=== PATIENT | male | born 1940 | race Hispanic/Latino ===

== ENCOUNTER 2018-08-11 12:00 | Inpatient (IN) | payer MEDICARE ==
[~2018-08-11] VITALS: Ht 170.2 cm; Wt 73.1 kg
[2018-08-11] MEDS ORDERED: SODIUM CHLORIDE 0.9% 500ML 500 ML IV STA (12:02)
--- OUTSIDE RECORDS SUMMARY | 2018-08-11 12:02 | XMS REPORT ---
Author [facility] Address Unknown Phone Unavailable Care Team Providers Care Silk Folder Name Role Phone Emeterio OLIVEROS OSWALDO PP Unavailable Payers Payer Name Policy Type Policy Number Effective Date Expiration Date Problems This patient has no known problems. Allergies, Adverse Reactions, Alerts Allergy Name Allergy Type Status Severity Reaction(s) Onset Date Inactive Date Treating Clinician Comments No Known Allergies DA Active U 2017-03-25 00:00:00 Medications This patient has no known medications. Encounters Start Date/Time End Date/Time Encounter Type Admission Type Attending Clinicians Care Facility Care Department Encounter ID 2017-12-07 09:30:00 2017-12-07 09:30:00 Outpatient [facility] [id number] 2017-11-08 10:25:00 2017-11-08 10:25:00 Outpatient [facility] [id number] Results Test Description Test Time Test Comments Text Results Atomic Results Result Comments CT ABDOMEN WO CONTRAST 2017-12-07 10:17:15 CT ABDOMEN WO CONTRASTLOCATION: [id number]: D63.1: ANEMIA IN CHRONIC KIDNEY DISEASECOMPARISON: Chest radiograph 11/08/2017TECHNIQUE: Axial images of the abdomen were obtained without intravenouscontrast. Coronal and sagittal reformatted images were created.One or more of the following dose reduction techniques were used:Automated exposure control, adjustment of the mA and/or kV according topatient size, and/or utilization of iterative reconstruction technique.DISCUSSION:Lower thorax: Median sternotomy changes are partially visualized. Thereis mild bibasilar atelectasis and/or scarring. Aortic annulus andcoronary artery calcifications are present.Hepatobiliary: Unremarkable. No biliary ductal dilatation.Gallbladder: Appears contracted.Spleen: Unremarkable.Pancreas: Unremarkable.Adrenals: Unremarkable.Kidneys/ureters: Perinephric fat stranding can be normal for age.Approximately 4.3 cm fluid density lesion in the lower left kidney islikely a cyst. Additional 0.8 cm fluid density lesion in the lower rightkidney and 0.9 cm fluid density lesion in the upper left kidney are alsolikely cysts. The kidneys and visualized upper ureters are otherwiseunremarkable.Vessels: Aortoiliac calcific atherosclerosis is present.Lymph nodes: No lymphadenopathy.Peritoneum/retroperitoneum: No free fluid. No definite evidence forpneumoperitoneum. Punctate peritoneal calcification along the superiorspleen is nonspecific.Bowel: A small, approximately 1.2 cm duodenal diverticulum is seen alongthe pancreaticoduodenal groove. Otherwise, no definite abnormal bowelwall thickening or evidence of obstruction. The appendix is normal.Colonic diverticulosis is present without definite evidence fordiverticulitis.Bones/soft tissues: There are mild to moderate scattered degenerativechanges in the spine and sacroiliac joints. Mild gynecomastia ispartially visualized.IMPRESSION:1. No acute abnormalities in the abdomen.2. A few bilateral renal cysts, measuring up to 4.3 cm in the lowerleft kidney.3. Colonic diverticulosis without diverticulitis.4. Small duodenal diverticulum. XR CHEST 2V, PA/LAT 2017-11-08 10:56:33 EXAM: Chest x-ray, 2 viewsLOCATION: [id number]: Chest radiograph 04/29/2016INDICATION: F17.210: NICOTINE DEPENDENCE, CIGARETTES, UNCOMPLICATEDDISCUSSION:PA and lateral chest radiographs were submitted for interpretation.Median sternotomy changes are noted.No consolidation, pleural effusion, or pneumothorax is seen. The cardiomediastinal silhouette is within normal limits. No acute osseous abnormalities are identified. Mild aortic calcification is present.There are degenerative changes in the shoulders and spine.IMPRESSION:No acute cardiopulmonary abnormalities.
[2018-08-11] MEDS ORDERED: FAMOTIDINE 20 MG/2 ML VIAL IV ONE (12:15)
[2018-08-11] MEDS ORDERED: ONDANSETRON HCL INJ 2 MG/ML VIAL IV PRN ×2 (12:15→14:00)
[2018-08-11 12:47] LABS: BASOPHILS % 0.2 % (0.0-1.0); HEMOGLOBIN 9.4 g/dL (14.0-18.0); LYMPHOCYTES % 7.9 % (18.0-39.1); MEAN CORPUSCULAR HEMOGLOBIN 29.9 pg (28-32); MEAN CORPUSCULAR HGB CONC 32.4 g/dL (31-35); MEAN CORPUSCULAR VOLUME 92.4 fL (81-99); MONOCYTES # (AUTO) 0.3 (0.2-0.8); MONOCYTES % 2.6 % (4.4-11.3); NEUTROPHILS # (AUTO) 11.4 (2.1-6.9); NEUTROPHILS % 88.1 % (38.7-80.0); PLATELET COUNT 341 x10e3/uL (140-360); RED BLOOD COUNT 3.14 x10e6/uL (4.3-5.7); RED CELL DISTRIBUTION WIDTH 16.1 % (11.7-14.4)
[2018-08-11] MEDS ORDERED: PLAVIX75 MG PO (12:48)
[2018-08-11] MEDS ORDERED: METOPROLOL SUCC25 MG PO (12:48)
[2018-08-11] MEDS ORDERED: ATORVASTATIN CA10 MG PO (12:48)
[2018-08-11] MEDS ORDERED: HYDROCHLOROTH12.5 MG PO (12:48)
[2018-08-11] MEDS ORDERED: LOW DOSE ASPIRI81 MG PO (12:48)
[2018-08-11] MEDS ORDERED: LISINOPRIL40 MG PO (12:48)
[2018-08-11] MEDS ORDERED: PIOGLITAZONE HC30 MG PO (12:48)
[2018-08-11] MEDS ORDERED: TAMSULOSIN HCL0.4 MG PO (12:48)
[2018-08-11] MEDS ORDERED: NITROGLYCERIN0.4 MG SL (12:48)
[2018-08-11] MEDS ORDERED: GLIPIZIDE10 MG PO (12:48)
--- NOTE | 2018-08-11 12:54 | Diagnostic Imaging Report ---
Examination: Single AP view of the chest. COMPARISON: None. INDICATION: Chest pain, look for CHF, enlarged mediastinum IMPRESSION: 1. Lines and Tubes: Tunneled right IJ dialysis catheter, with distal tip projecting in the proximal SVC. 2. Lungs are grossly clear. No consolidation or effusion. 3. Cardiomediastinal silhouette is normal. Pulmonary vasculature is normal. CABG changes. Mediastinum is grossly unremarkable in this single AP view 4. No acute bony abnormalities. Midline sternotomy wires. There is fracture of the most superior suture. Signed by: Dr. Bobo Martinez M.D. on 08/11/2018 12:50 PM
[2018-08-11 13:06] LABS: ALBUMIN 2.6 g/dL (3.5-5.0); ALBUMIN/GLOBULIN RATIO 0.5 (0.8-2.0); ANION GAP 17.7 mmol/L (8-16); CALCIUM 9.1 mg/dL (8.4-10.2); CREATININE, SERUM 3.71 mg/dL (0.72-1.25)
[2018-08-11 13:12] LABS: CREATINE KINASE MB 1.1 ng/mL (0-5.0)
[2018-08-11 13:14] LABS: POTASSIUM 2.7 mmol/L (3.5-5.1)
--- NOTE | 2018-08-11 13:35 | Diagnostic Imaging Report ---
History:Syncopal episode Comparison studies:None Technique: Axial images were obtained from the skull base to the vertex. Coronal and sagittal images reconstructed from the axial data. Intravenous contrast: None Dose modulation, iterative reconstruction, and/or weight based adjustment of the mA/kV was utilized to reduce the radiation dose to as low as reasonably achievable. Findings: Scalp/skull: No abnormalities. Extra-axial spaces: No masses. No fluid collections. Brain sulci: Mildly prominent. Ventricles: Mild compensatory dilatation. No hydrocephalus. Parenchyma: Scattered hypodensities in the supratentorial white matter are small vessel ischemic changes. Cortical-based hypodensity at the right paracentral lobule and right middle frontal gyrus with associated volume loss. Cortical-based hypodensity at the left gyrus without loss No masses or hemorrhage. Sellar/suprasellar region: No abnormalities. Craniocervical junction: Patent foramen magnum. No Chiari one malformation. Incidental findings: Atherosclerotic calcifications in the carotid siphons . Impression: Age indeterminant infarct at the left occipital lobe (lingular gyrus). No intracranial hemorrhage Chronic findings: 1. Mild generalized volume loss. 2. Mild supratentorial white matter small vessel ischemic changes. 3. 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 The above finding was reported and acknowledged by NICK Masterson at 1:34 PM 08/11/2018 Signed by: DR Aguilar Hinson M.D. on 08/11/2018 1:32 PM
[2018-08-11] MEDS ORDERED: ACETAMINOPHEN 325 MG TAB PO PRN (14:00)
[2018-08-11] MEDS ORDERED: CLONIDINE HCL 0.2 MG TAB PO PRN (14:00)
[2018-08-11] MEDS ORDERED: ASPIRIN 81 MG CHEW TAB PO ONE (14:00)
[2018-08-11] MEDS ORDERED: DIPHENHYDRAMINE HCL INJ 50 MG/ML VIAL IV PRN (14:00)
[2018-08-11] MEDS ORDERED: ZOLPIDEM TARTRATE 5 MG TAB PO PRN (14:00)
[2018-08-11] MEDS ORDERED: DEXTROSE 50% SYRINGE 50 ML IV PRN (14:00)
[2018-08-11] MEDS: FAMOTIDINE 20 MG TAB PO SCH (14:20)
[2018-08-11] MEDS: METOPROLOL TARTRATE 25 MG TAB PO SCH (14:36)
[2018-08-11 15:42] LABS: CREATINE KINASE MB 1.2 ng/mL (0-5.0)
[2018-08-11 16:15] VITALS: BP 139/62
[2018-08-11 16:43] VITALS: BP 139/62
--- NOTE | 2018-08-11 17:12 | Diagnostic Imaging Report ---
History: Passed out Comparison studies: CT head 08/11/2018 Technique: Pre-contrast: Sagittal T2; axial T1-IR, MPGR, DWI, T2 FLAIR. Post-contrast: axial and coronal T1. 2-D cervical and 3-D intracranial [id number] MRA's . Intravenous contrast: None Findings: Brain: Scalp: No abnormal signal. No masses. Bone marrow: Normal in signal intensity. Brain sulci: Mildly prominent . Ventricles: Normal in size . No hydrocephalus. Parenchyma: Encephalomalacia at the right frontal gyrus and right woodall radiata. Cortical-based FLAIR hyperintensity at the left lingular gyrus without restricted diffusion, loss of volume or mass effect.. Scattered T2/flair hyperintensities of the periventricular and deep white matter No masses, hemorrhage or acute vascular insults. Suprasellar region: No abnormalities. Craniocervical junction: No abnormalities. Patent foramen magnum. No Chiari one malformation. Vessels: Normal flow-voids in the arteries and sinuses. Cervical MRA: Carotid arteries: No flow abnormalities . Vertebral arteries: No flow abnormalities . Intracranial MRA: Internal carotid arteries: No flow abnormalities . Irregular flow at the bilateral MCAs and credit processor, related to atherosclerotic disease, without hemodynamically significant stenosis. Vertebrobasilar circulation: No flow abnormalities . Anatomical variants: Acom: Visualized. Pcoms: Not visualized. Vertebral arteries: Co-dominant. IMPRESSION: Brain: 1. No acute intracranial abnormality 2. Chronic right MCA territory infarcts. Gliosis of the left lingular gyrus, related to remote insult. 3. Mild chronic microvascular ischemic changes and diffuse volume loss Cervical and intracranial MRAs: 1. No hemodynamically significant stenosis of the neck arteries or [place] Signed by: DR Aguilar Hinson M.D. on 08/11/2018 5:09 PM
--- NOTE | 2018-08-11 17:17 | Diagnostic Imaging Report ---
History: Passed out Comparison studies: CT head 08/11/2018 Technique: Pre-contrast: Sagittal T2; axial T1-IR, MPGR, DWI, T2 FLAIR. Post-contrast: axial and coronal T1. 2-D cervical and 3-D intracranial [id number] MRA's . Intravenous contrast: None Findings: Brain: Scalp: No abnormal signal. No masses. Bone marrow: Normal in signal intensity. Brain sulci: Mildly prominent . Ventricles: Normal in size . No hydrocephalus. Parenchyma: Encephalomalacia at the right frontal gyrus and right woodall radiata. Cortical-based FLAIR hyperintensity at the left lingular gyrus without restricted diffusion, loss of volume or mass effect.. Scattered T2/flair hyperintensities of the periventricular and deep white matter No masses, hemorrhage or acute vascular insults. Suprasellar region: No abnormalities. Craniocervical junction: No abnormalities. Patent foramen magnum. No Chiari one malformation. Vessels: Normal flow-voids in the arteries and sinuses. Cervical MRA: Carotid arteries: No flow abnormalities . Vertebral arteries: No flow abnormalities . Intracranial MRA: Internal carotid arteries: No flow abnormalities . Irregular flow at the bilateral MCAs and websphere commerce consultant, related to atherosclerotic disease, without hemodynamically significant stenosis. Vertebrobasilar circulation: No flow abnormalities . Anatomical variants: Acom: Visualized. Pcoms: Not visualized. Vertebral arteries: Co-dominant. IMPRESSION: Brain: 1. No acute intracranial abnormality 2. Chronic right MCA territory infarcts. Gliosis of the left lingular gyrus, related to remote insult. 3. Mild chronic microvascular ischemic changes and diffuse volume loss Cervical and intracranial MRAs: 1. No hemodynamically significant stenosis of the neck arteries or [place] Signed by: DR Aguilar Hinson M.D. on 08/11/2018 5:14 PM
--- NOTE | 2018-08-11 17:17 | Diagnostic Imaging Report ---
History: Passed out Comparison studies: CT head 08/11/2018 Technique: Pre-contrast: Sagittal T2; axial T1-IR, MPGR, DWI, T2 FLAIR. Post-contrast: axial and coronal T1. 2-D cervical and 3-D intracranial [id number]-[id number] MRA's . Intravenous contrast: None Findings: Brain: Scalp: No abnormal signal. No masses. Bone marrow: Normal in signal intensity. Brain sulci: Mildly prominent . Ventricles: Normal in size . No hydrocephalus. Parenchyma: Encephalomalacia at the right frontal gyrus and right woodall radiata. Cortical-based FLAIR hyperintensity at the left lingular gyrus without restricted diffusion, loss of volume or mass effect.. Scattered T2/flair hyperintensities of the periventricular and deep white matter No masses, hemorrhage or acute vascular insults. Suprasellar region: No abnormalities. Craniocervical junction: No abnormalities. Patent foramen magnum. No Chiari one malformation. Vessels: Normal flow-voids in the arteries and sinuses. Cervical MRA: Carotid arteries: No flow abnormalities . Vertebral arteries: No flow abnormalities . Intracranial MRA: Internal carotid arteries: No flow abnormalities . Irregular flow at the bilateral MCAs and teacher theater arts, related to atherosclerotic disease, without hemodynamically significant stenosis. Vertebrobasilar circulation: No flow abnormalities . Anatomical variants: Acom: Visualized. Pcoms: Not visualized. Vertebral arteries: Co-dominant. IMPRESSION: Brain: 1. No acute intracranial abnormality 2. Chronic right MCA territory infarcts. Gliosis of the left lingular gyrus, related to remote insult. 3. Mild chronic microvascular ischemic changes and diffuse volume loss Cervical and intracranial MRAs: 1. No hemodynamically significant stenosis of the neck arteries or [place] Signed by: DR Aguilar Hinson M.D. on 08/11/2018 5:14 PM
[2018-08-11] MEDS: INSULIN REGULAR, HUMAN 100 UNIT/1 ML 3ML VIAL SQ SCH ×2 (17:20→21:33)
[2018-08-11 20:00] VITALS: BP 122/60
[2018-08-11] MEDS: SIMVASTATIN 20 MG TAB PO SCH (21:23)
[2018-08-11 21:34] VITALS: BP 122/60
[2018-08-12] VITALS (7 sets, daily range): BP systolic 132–162; BP diastolic 63–95
[2018-08-12] MEDS: METOPROLOL TARTRATE 25 MG TAB PO SCH (02:22)
[2018-08-12] MEDS: FAMOTIDINE 20 MG TAB PO SCH ×2 (02:23→16:00)
[2018-08-12 04:50] LABS: BASOPHILS % 0.1 % (0.0-1.0); EOSINOPHILS % 0.1 % (0.0-6.0); HEMATOCRIT 28.8 % (38.2-49.6); HEMOGLOBIN 9.1 g/dL (14.0-18.0); LYMPHOCYTES # (AUTO) 2.1 (1.0-3.2); LYMPHOCYTES % 15.7 % (18.0-39.1); MEAN CORPUSCULAR HEMOGLOBIN 29.6 pg (28-32); MEAN CORPUSCULAR HGB CONC 31.6 g/dL (31-35); MEAN CORPUSCULAR VOLUME 93.8 fL (81-99); MONOCYTES # (AUTO) 0.7 (0.2-0.8); MONOCYTES % 4.9 % (4.4-11.3); NEUTROPHILS # (AUTO) 10.6 (2.1-6.9); NEUTROPHILS % 78.3 % (38.7-80.0); PLATELET COUNT 318 x10e3/uL (140-360); RED BLOOD COUNT 3.07 x10e6/uL (4.3-5.7); RED CELL DISTRIBUTION WIDTH 16.2 % (11.7-14.4)
[2018-08-12 05:10] LABS: ANION GAP 16.1 mmol/L (8-16); CREATININE, SERUM 4.56 mg/dL (0.72-1.25); POTASSIUM 3.1 mmol/L (3.5-5.1)
[2018-08-12 05:11] LABS: CALCIUM 9.2 mg/dL (8.4-10.2)
[2018-08-12 05:48] LABS: CREATINE KINASE MB 1.6 ng/mL (0-5.0)
[2018-08-12] MEDS: INSULIN REGULAR, HUMAN 100 UNIT/1 ML 3ML VIAL SQ SCH ×4 (07:30→20:18)
--- NOTE | 2018-08-12 08:43 | Consultation ---
DATE OF CONSULTATION: August 12, 2018 REASON FOR CONSULTATION: End-stage renal disease. Thank you for letting me participate in Mr. Siddiqui's care. This is a 78-year-old male with a history of end-stage renal disease, who is on dialysis, apparently had a syncopal episode. He feels like more fluid was pulled off. He is feeling better today, but still remains unsteady. MRI is showing only chronic infarcts. The nausea is mostly resolved. Apparently, he was standing up when he passed out. He remains weak and unsteady. There was some confusion that is now improved. PAST MEDICAL HISTORY: ESRD, hypertension, type 2 diabetes, anemia, CKD, secondary hyperparathyroidism. HOME MEDICATIONS: Please see list. SOCIAL HISTORY: . There is no alcohol or smoking. FAMILY HISTORY: Diabetes. REVIEW OF SYSTEMS CONSTITUTIONAL: No fever or chills. GI: Nausea and vomiting is better. He is still unsteady when he walks. VASCULAR: No leg swelling or leg ulcers. MUSCULOSKELETAL: No pain or arthralgias. The rest of the review is negative. PHYSICAL EXAMINATION GENERAL: Sitting up in bed. No distress. VITALS: Temperature is 97.1, pulse 77, blood pressure 150/95. HEENT: Atraumatic. NECK: No JVD. CHEST: Clear. CARDIAC: Normal heart tones. Rhythm sounds regular. EXTREMITIES: No edema. ABDOMEN: Benign. NEURO: Gait not tested. Speech is normal. There is some slight trouble recollecting events the last 2 days. Appears to be moving all 4 limbs with equal strength. LABS: Chest x-ray was clear. MRI showing chronic infarcts. Hemoglobin 9.1. Potassium 3.1, creatinine 4.5, BUN 31. ASSESSMENT 1. End-stage renal disease: He is due for dialysis tomorrow. 2. Underlying diabetic hypertensive with end-organ damage. 3. Anemia of chronic kidney disease: He is on long-acting in the clinic. PLAN: Hemodialysis tomorrow per usual schedule. Will follow along. Resume home medications. Add protein supplements. Job#: [id number] OK
[2018-08-12] MEDS ORDERED: ASPIRIN 81 MG ENTERIC COATED PO SCH (09:00)
[2018-08-12 10:13] LABS: CLARITY,URINE HAZY (CLEAR); COLOR,URINE RED (YELLOW); LEUKOCYTE ESTERASE ,URINE 1+ (NEGATIVE); NITRITE,URINE NEGATIVE (NEGATIVE); PROTEIN,URINE DIPSTICK 2+ (NEGATIVE)
[2018-08-12 10:14] LABS: BILIRUBIN,URINE NEGATIVE (NEGATIVE); KETONES,URINE NEGATIVE (NEGATIVE); URINE UROBILINOGEN 0.2 mg/dL (0.2 - 1)
[2018-08-12 10:15] LABS: AMORPHOUS SEDIMENT,URINE FEW (FEW); BACTERIA,URINE FEW /HPF; EPITHELIAL CELLS,URINE FEW /LPF; MUCUS,URINE FEW (RARE); RBC,URINE >50 /HPF (0-5)
[2018-08-12] MEDS ORDERED: NITROGLYCERIN 0.4 MG SUBL SL SCH (10:30)
[2018-08-12 11:08] LABS: CHOL/HDL RATIO 4.1 (3.9-4.7)
--- NOTE | 2018-08-12 16:16 | Electroencephalogram ---
DATE OF STUDY: August 12, 2018 REQUESTING PHYSICIAN: Dr. Jewels Newberry. HISTORY: This 78-year-old man with history of a possible seizure versus vasovagal syncope is having an EEG for evaluation of epileptiform activity. The patient is not taking any medications that may effect the EEG. TECHNIQUE: This is a routine, portable EEG, recorded digitally using the international 10/20 electrode placement system, and done in the inpatient setting with the patient awake. The EEG is technically limited because of muscle and electrical artifact. DESCRIPTION: Well-organized, well-sustained 8-9 Hertz activity is best seen symmetrically over the posterior head regions. No focal or epileptiform activity is recorded. Sleep is not recorded. Photic stimulation does produce a driving response. Hyperventilation is not performed. INTERPRETATION: This electroencephalogram is normal with the patient awake. No epileptiform discharges are seen. Job#: [id number] GH MTDD
--- NOTE | 2018-08-12 16:37 | Consultation ---
DATE OF CONSULTATION: August 12, 2018 NEUROLOGY CONSULTATION HISTORY OF PRESENT ILLNESS: Mr. Siddiqui is a 78-year-old irhle-qqyc-ryirqfrg man with past medical history significant for hypertension, hyperlipidemia, diabetes mellitus type 2, coronary artery disease, end-stage renal disease on hemodialysis Tuesdays, , and Saturdays, and prior stroke with residual left-sided deficits in 2007, admitted to [facility] on August 11, 2018, with a possible seizure. According to Mr. Siddiqui, he completed hemodialysis between 1500 and 1600 on the day of admission. Following the completion of hemodialysis, Mr. Siddiqui had to use the restroom. As he was ambulating towards the restroom, Mr. Siddiqui reports experiencing generalized weakness. His had to assist him with ambulation as well as sitting on the toilet. While he was having a bowel movement, the patient abruptly lost consciousness and slumped over into his 's lap. Mr. Siddiqui does not know whether or not there was stiffening or shaking of his arms and legs. He does not report tongue biting. He does not report drooling or vomitus. As the patient was sitting on the toilet, it is unknown whether there was bladder or bowel incontinence. Mr. Siddiqui reports being unconscious for approximately 5 minutes. Once he regained consciousness, the patient was confused as to what had happened. However, the patient reports knowing who he was, who his was, he recognized various staff members from his dialysis facility, as well as recognizing his dialysis facility. After Mr. Siddiqui lost consciousness, his called for help. A staff member of the dialysis facility notified emergency medical services, and Mr. Siddiqui was brought to the Emergency Center at [facility] via ambulance for further evaluation of his symptoms. Upon arrival in the Emergency Center, the patient was afebrile with a blood pressure of 110/61 mmHg and a pulse of 92 beats per minute. The patient's neurological examination was documented as being nonfocal. Laboratory data was significant for hypokalemia with potassium of 2.7, elevated serum creatinine with low estimated glomerular filtration rate, and an elevated serum glucose of 313. While in the emergency center, a CT of the brain without contrast was performed as well. It revealed a possible subacute ischemic stroke in the left occipital lobe (lingular gyrus). Mr. Siddiqui was admitted to [facility] for further evaluation and treatment. The patient does not report a prior history of seizures. There is no known family history of seizures. The patient does not report a history of prior head trauma. Patient does not report a history of meningitis or encephalitis. REVIEW OF SYSTEMS: Confusion, generalized weakness, loss of consciousness. Otherwise, the 12-point review of systems is negative. PAST MEDICAL HISTORY: Hypertension; hyperlipidemia; diabetes mellitus; coronary artery disease; end-stage renal disease on hemodialysis Tuesdays, , and Saturdays; stroke in 2007 with residual left-sided deficits; bladder cancer; right carotid artery stenosis. PAST SURGICAL HISTORY: Four-vessel CABG, procedure for bladder cancer, access for hemodialysis, right carotid endarterectomy, tonsillectomy, cholecystectomy, right cataract removed. PAST HOSPITALIZATIONS: Surgeries/procedures as listed, stroke, chest pain. FAMILY MEDICAL HISTORY: Patient's paternal and maternal grandparents are . Their medical histories are unknown. The patient's father is from complications of diabetes mellitus and heart disease. Patient's mother is from natural causes. Mr. Siddiqui had 6 siblings, 3 brothers and 3 sisters. All of his brothers are . One is from Alzheimer disease, another from throat cancer, and a third from alcoholism. Two sisters are . One from natural causes and the other from coronary artery disease with a myocardial infarction and stroke. One sister is alive. She has high blood pressure, high cholesterol, and diabetes mellitus. Mr. Siddiqui has 4 children, 3 sons and 1 daughter, all of whom are alive and healthy. SOCIAL HISTORY: The patient is . He is retired. The patient reports a prior history of tobacco use, but quit smoking cigarettes 10 years ago. The patient quit drinking alcohol "a long time ago." The patient does not report current or prior recreational drug use. HOME MEDICATIONS 1. Aspirin 81 mg by mouth daily. 2. Atorvastatin 10 mg by mouth daily. 3. Plavix 75 mg by mouth daily. 4. Glipizide 10 mg by mouth twice daily. 5. Hydrochlorothiazide 12.5 mg by mouth daily. 6. Lisinopril 40 mg by mouth daily. 7. Metoprolol 25 mg by mouth twice daily. 8. Nitroglycerin 0.5 mg sublingually as needed for chest pain. 9. Pioglitazone 30 mg by mouth daily. 10. Tamsulosin 0.5 mg by mouth at bedtime daily. ALLERGIES: NO KNOWN DRUG ALLERGIES. NO KNOWN FOOD ALLERGIES. NO KNOWN ALLERGY TO LATEX. NO KNOWN ALLERGIES TO IODINE OR OTHER CONTRAST MATERIALS. PHYSICAL EXAMINATION VITAL SIGNS: Height 67 inches, weight 157.5 pounds, BMI 24.7 kg per meter squared. Blood pressure 152/70 mmHg. Pulse 81 beats per minute. Respiratory rate 20 breaths per minute. Oxygen saturation 98% on room air. GENERAL: Patient is awake and alert. Does not appear distressed. HEENT: Normocephalic and atraumatic. Pupils are equal, round, and reactive to light. Moist mucous membranes. NECK: Supple. No appreciable thyromegaly. No appreciable carotid bruits. CARDIOVASCULAR: S1 and S2, regular rate and rhythm. No murmurs, rubs, or gallops. RESPIRATORY: Clear to auscultation bilaterally. No wheezes, rhonchi, or rales. EXTREMITIES: The skin is warm and dry. No clubbing, cyanosis, or edema. The posterior tibial and dorsalis pedis pulses are trace and symmetric. SKIN: No rashes or lesions. NEUROLOGIC EXAMINATION MEMORY/ATTENTION: The patient is awake and alert. Oriented to person, place, time, and situation. CRANIAL NERVES: Cranial nerve I: Not tested. Cranial nerves II, III, IV, and : Pupils are equal and round, react briskly to light (from 4 mm to 2 mm). Extraocular movements are intact. No nystagmus. Cranial nerve V: Sensation to light touch and pinprick is intact in the bilateral V1 through V3 distributions. Strength of the temporalis and masseter muscles is within normal limits. Cranial nerve VII: The face is symmetric as are all facial movements. Strength is within normal limits. Cranial nerve VIII: Hearing is diminished to finger rub bilaterally. Cranial nerves IX and X: The soft palate elevates equally and symmetrically. Cranial nerve XI: Normal strength of the bilateral sternocleidomastoid and trapezius muscles. Cranial nerve XII: The tongue protrudes midline and moves symmetrically from side to side. STRENGTH: Bulk is normal. Strength is 5/5 in the bilateral deltoids, biceps, triceps, wrist flexors and extensors, finger flexors and extensors, intrinsic hand muscles, hip flexors, knee flexors and extensors, ankle dorsiflexion and plantarflexion, and intrinsic foot muscles. Tone is normal. DTRs: Deep tendon reflexes are 1+ and symmetric at the triceps, biceps, and brachioradialis. Deep tendon reflexes are 1+ at the left patella, absent at the right patella. Deep tendon reflexes are absent and symmetric at the Achilles. Plantar responses are flexor bilaterally. SENSATION: Sensation is intact to light touch and pinprick in both arms and both legs. CEREBELLAR: Vxdnnx-tkck-rmlttv and heel-gutierrez movements are intact without dysmetria or other impairment. GAIT: Deferred. SPEECH: Spontaneous speech is mildly dysarthric without appreciable aphasia. Repetition is intact. INVOLUNTARY MOVEMENTS: None. PRONATOR DRIFT: None. LABORATORY DATA: The patient's most recent basic metabolic panel is significant for potassium of 3.1, anion gap of 16.1, BUN 31, creatinine 4.56, estimated GFR of 13, and glucose of 67. Cardiac enzymes are negative times 3. Hemoglobin A1c is 4.5. Total cholesterol 124, triglycerides 164, LDL cholesterol 61, HDL cholesterol 30. TSH 0.529. The CBC with differential and platelets reveals a white blood cell count of 13.59 with 78.3% neutrophils, 15.7% lymphocytes, 4.9% monocytes, 0.1% eosinophils, and 0.1% basophils. The hemoglobin and hematocrit are 9.1 and 28.8, respectively. The platelet count is 318. A urinalysis was significant for 2+ protein, 4+ blood, 1+ leukocyte esterase, greater than 50 red blood cells, 11 to 20 white blood cells, few urine bacteria, and 1 to 5 coarse granular casts. Urine and blood cultures have been collected and are pending. DIAGNOSTIC STUDIES 1. Electrocardiogram, 08/11/2018: Normal sinus rhythm at 96 beats per minute. 2. CT of brain without contrast, 08/11/2018: There is an age-indeterminate ischemic stroke in the left occipital lobe, lingular gyrus. There is no evidence of hemorrhage, mass, or mass effect. There is a chronic right middle cerebral artery distribution stroke with residual encephalomalacia. There is mild diffuse cerebral atrophy with compensatory dilatation of the ventricles, expected for the patient's age. There are findings compatible with mild to moderate chronic small vessel ischemic disease. 3. Chest x-ray, 08/11/2018: 1) Lines and tubes: Tunneled right IJ dialysis catheter, with distal tip projecting in the proximal SVC. 2) Lungs are grossly clear. No consolidation or effusion. 3) Cardiomediastinal silhouette is normal. Pulmonary vasculature is normal. CABG changes. Mediastinum is grossly unremarkable in this single AP view. 4) No acute bony abnormalities. Midline sternotomy wires. There is fracture of the most superior suture. 4. MRI of the brain without contrast, 08/11/2018: On my review, there is no evidence of recent large territorial ischemia, hemorrhage, mass, or mass effect. The stroke seen in the right middle cerebral artery distribution and left posterior cerebral artery distribution identified on the previous CT of the brain without contrast is chronic. There is diffuse cerebral atrophy with compensatory dilatation of the ventricles, expected for the patient's age. There are scattered T2/FLAIR hyperintense foci of the supratentorial deep white matter, compatible with mild chronic small vessel ischemic disease. 5. MRA of the brain and neck without contrast, 08/11/2018: There is no hemodynamically significant stenosis of the lower el[place] of [place] or extracranial blood vessels. 6. Echocardiogram, 08/12/2018: Ejection fraction 60%. Left ventricular hypertrophy. Left atrial enlargement. Trace mitral and tricuspid regurgitation. 7. Bilateral carotid artery ultrasound with Doppler, 08/12/2018: Atherosclerosis without hemodynamically significant stenosis of the bilateral common carotid arteries, carotid bulbs, and carotid bifurcations. Flow is antegrade the bilateral vertebral arteries. ASSESSMENT AND PLAN: Mr. Siddiqui is a 78-year-old, ixjqh-xjci-athducdl man with an extensive past medical history admitted to [facility] with vasovagal syncope versus seizure, urinary tract infection and end-stage renal disease on hemodialysis Tuesdays, , and Saturdays. As detailed above, the patient has not had a new stroke. Mr. Siddiqui' neurological examination is nonfocal. His laboratory data and other diagnostic studies have been reviewed and are documented above. RECOMMENDATIONS 1. A routine EEG was ordered to evaluate for abnormal electrocortical activity suggesting a predisposition toward seizures. The results of that study are pending. Once those results are available for review, a discussion of those findings as well as the benefits and possible consequences of treatment with antiepileptic medication will be discussed with Mr. Siddiqui. 2. Secondary to the results of the urinalysis, urine and blood cultures were ordered. Those results are pending. 3. Treatment of the remaining medical comorbidities is deferred to the primary and other services following the patient. Thank you for this consultation. I will continue to follow the patient while he remains in the hospital. Time spent: 70 minutes. Job#: [id number] CHARLES SALGADO
[2018-08-12] MEDS: METOPROLOL SUCCINATE 25 MG TAB XL PO SCH (17:22)
--- NOTE | 2018-08-12 20:02 | History and Physical ---
PRIMARY CARE PHYSICIAN: Dr. Jeremy Jaramillo. CHIEF COMPLAINT: Passing out after dialysis. HISTORY OF PRESENT ILLNESS: A 78-year-old male with a history of diabetes mellitus, end-stage renal disease as well as coronary artery disease with history of bypass, now having dialysis. After dialysis, he felt bad, felt very weak, and subsequently passed out. Patient is unclear as to whether there were any shaking events, but there was concern for seizure. Patient admitted to the hospital for further evaluation and management. He denies any loss of urine or stool. PAST MEDICAL HISTORY: Diabetes mellitus, hypertension, hyperlipidemia, stroke in 2008, coronary artery disease, status post coronary artery bypass grafting, anemia. PAST SURGICAL HISTORY: Coronary artery bypass grafting and hemodialysis catheter placement. ALLERGIES: PER ELECTRONIC MEDICAL RECORD. FAMILY AND SOCIAL HISTORY: Patient is , has 4 children. No alcohol, illicits, or cigarettes. MEDICATIONS: Per electronic medical record. REVIEW OF SYSTEMS: Denies any dyspnea, chest pain, shortness of breath, fever, chills, nausea, vomiting, diarrhea, headache, or leg pain. PHYSICAL EXAMINATION VITAL SIGNS: Reviewed. GENERAL: A tired-appearing man, resting in bed. HEENT: Sclerae anicteric. Pupils equal, round, and reactive to light. No abrasions. CARDIOVASCULAR: Normal S1 and S2. No murmurs audible. LUNGS: Moderate breath sounds. ABDOMEN: Soft, nontender, nondistended. EXTREMITIES: No edema or calf tenderness. NEUROLOGIC: Awake, alert, and oriented. Moves all extremities. MUSCULOSKELETAL: Right chest hemodialysis catheter. SKIN: Dry. PSYCHIATRIC: Normal affect. LABS: Reviewed. MEDICATIONS: Reviewed. ASSESSMENT: A 78-year-old man with; 1. Syncope. 2. Anemia of chronic disease. 3. End-stage renal disease, on hemodialysis. 4. Diabetes mellitus. 5. Urinary tract infection. 6. Coronary artery disease with history of coronary artery bypass grafting. 7. Hypertension. 8. Hyperlipidemia. 9. History of stroke. PLAN 1. Echocardiogram showed normal left ventricular ejection fraction and mild disease. 2. Ultrasound of carotids showed no significant disease. 3. Treat urinary tract infection with ceftriaxone. 4. Continue antihypertensive medication. 5. Monitor blood sugar level. 6. Followup EEG with neurology in the morning. 1. Followup with cardiology. 2. Imaging studies have been reviewed. 3. Physical therapy consultation. 4. Continue Pepcid and SCDs for prophylaxis. 5. Disposition. Discharge planning and possible discharge home tomorrow if EEG is negative. Job#: [id number] ANGEL
[2018-08-12] MEDS: CEFTRIAXONE SOD 1 GM VIAL IV SCH (20:37)
[2018-08-12] MEDS: ATORVASTATIN 10 MG TAB PO SCH (20:37)
[2018-08-12] MEDS: TAMSULOSIN HCL 0.4 MG CAP PO SCH (20:37)
[2018-08-12] MEDS: SIMVASTATIN 20 MG TAB PO SCH (20:37)
[2018-08-13] VITALS (7 sets, daily range): BP systolic 124–152; BP diastolic 58–85
[2018-08-13] MEDS: FAMOTIDINE 20 MG TAB PO SCH ×2 (02:14→16:28)
[2018-08-13] MEDS: INSULIN REGULAR, HUMAN 100 UNIT/1 ML 3ML VIAL SQ SCH ×4 (08:30→21:00)
[2018-08-13] MEDS: LISINOPRIL 20 MG TAB PO SCH (08:38)
[2018-08-13] MEDS: HYDROCHLOROTHIAZIDE 25 MG TAB PO SCH (08:38)
[2018-08-13] MEDS: ASPIRIN 81 MG ENTERIC COATED PO SCH (08:38)
[2018-08-13] MEDS: CLOPIDOGREL BISULFATE 75 MG TAB PO SCH (08:38)
[2018-08-13] MEDS: METOPROLOL SUCCINATE 25 MG TAB XL PO SCH ×2 (08:39→16:30)
[2018-08-13] MEDS ORDERED: NON-FORMULARY MEDICATION (Hydrochlorothiazide 12.5 MG) PO SCH (09:00)
[2018-08-13] MEDS ORDERED: NON-FORMULARY MEDICATION (Aspirin (Low Dose Aspirin Ec) 81 MG) PO SCH (09:00)
[2018-08-13] MEDS ORDERED: ATORVASTATIN 10 MG TAB PO SCH (09:00)
[2018-08-13] MEDS ORDERED: NON-FORMULARY MEDICATION (Lisinopril 40 MG) PO SCH (09:00)
[2018-08-13] MEDS ORDERED: HEPARIN SOD (PORCINE) 1000 UNIT/ML SDV IV PRN (10:15)
[2018-08-13] MEDS ORDERED: SODIUM CHLORIDE 0.9% 1000ML 2,000 ML IV PRN (10:15)
[2018-08-13] MEDS ORDERED: SODIUM CHLORIDE 0.9% 250ML 500 ML IV PRN (10:15)
[2018-08-13] MEDS ORDERED: KEFLEX500 MG PO (10:30)
[2018-08-13 11:41] LABS: BASOPHILS % 0.1 % (0.0-1.0); EOSINOPHILS % 0.2 % (0.0-6.0); HEMATOCRIT 23.4 % (38.2-49.6); HEMOGLOBIN 7.7 g/dL (14.0-18.0); LYMPHOCYTES # (AUTO) 1.9 (1.0-3.2); LYMPHOCYTES % 19.4 % (18.0-39.1); MEAN CORPUSCULAR HEMOGLOBIN 30.2 pg (28-32); MEAN CORPUSCULAR HGB CONC 32.9 g/dL (31-35); MEAN CORPUSCULAR VOLUME 91.8 fL (81-99); MONOCYTES # (AUTO) 0.3 (0.2-0.8); NEUTROPHILS # (AUTO) 7.3 (2.1-6.9); NEUTROPHILS % 76.1 % (38.7-80.0); PLATELET COUNT 227 x10e3/uL (140-360); RED BLOOD COUNT 2.55 x10e6/uL (4.3-5.7)
[2018-08-13] MEDS: CEFTRIAXONE SOD 1 GM VIAL IV SCH (17:40)
[2018-08-13] MEDS: TAMSULOSIN HCL 0.4 MG CAP PO SCH (21:45)
[2018-08-13] MEDS: ATORVASTATIN 10 MG TAB PO SCH (21:45)
[2018-08-13] MEDS: SIMVASTATIN 20 MG TAB PO SCH (21:45)
[2018-08-13] MEDS: HYDROCODONE/APAP 7.5MG-325MG 1 EA TAB PO PRN (23:26)
[2018-08-14] VITALS (8 sets, daily range): BP systolic 115–143; BP diastolic 56–75
[2018-08-14] MEDS: FAMOTIDINE 20 MG TAB PO SCH ×2 (02:46→16:19)
[2018-08-14 06:02] LABS: INR 0.98; PROTHROMBIN TIME 13.9 seconds (11.9-14.5)
[2018-08-14] MEDS: INSULIN REGULAR, HUMAN 100 UNIT/1 ML 3ML VIAL SQ SCH ×4 (08:02→21:00)
[2018-08-14] MEDS: CLOPIDOGREL BISULFATE 75 MG TAB PO SCH (08:02)
[2018-08-14] MEDS: HYDROCHLOROTHIAZIDE 25 MG TAB PO SCH (08:02)
[2018-08-14] MEDS: LISINOPRIL 20 MG TAB PO SCH (08:02)
[2018-08-14] MEDS: ASPIRIN 81 MG ENTERIC COATED PO SCH (08:02)
[2018-08-14] MEDS: METOPROLOL SUCCINATE 25 MG TAB XL PO SCH ×2 (08:03→16:27)
[2018-08-14] MEDS: CEFTRIAXONE SOD 1 GM VIAL IV SCH (17:28)
[2018-08-14] MEDS: SIMVASTATIN 20 MG TAB PO SCH (21:05)
[2018-08-14] MEDS: ATORVASTATIN 10 MG TAB PO SCH (21:05)
[2018-08-14] MEDS: TAMSULOSIN HCL 0.4 MG CAP PO SCH (21:05)
[2018-08-15] VITALS (7 sets, daily range): BP systolic 136–170; BP diastolic 65–79
[2018-08-15] MEDS: FAMOTIDINE 20 MG TAB PO SCH ×2 (02:00→14:00)
[2018-08-15] MEDS: INSULIN REGULAR, HUMAN 100 UNIT/1 ML 3ML VIAL SQ SCH ×4 (07:30→22:00)
[2018-08-15] MEDS: CLOPIDOGREL BISULFATE 75 MG TAB PO SCH (08:44)
[2018-08-15] MEDS: ASPIRIN 81 MG ENTERIC COATED PO SCH (08:44)
[2018-08-15] MEDS: LISINOPRIL 20 MG TAB PO SCH (08:44)
[2018-08-15] MEDS: HYDROCHLOROTHIAZIDE 25 MG TAB PO SCH (08:44)
[2018-08-15] MEDS: METOPROLOL SUCCINATE 25 MG TAB XL PO SCH ×2 (08:44→16:41)
[2018-08-15 12:55] LABS: ANION GAP 16.9 mmol/L (8-16); CALCIUM 9.3 mg/dL (8.4-10.2); CREATININE, SERUM 5.62 mg/dL (0.72-1.25)
[2018-08-15 13:00] LABS: POTASSIUM 2.9 mmol/L (3.5-5.1)
[2018-08-15] MEDS ORDERED: POTASSIUM CHLORIDE 20MEQ/100ML 100 ML IV ONE (14:30)
[2018-08-15] MEDS ORDERED: SODIUM CHLORIDE 0.9% 250ML 500 ML ONE (16:21)
[2018-08-15] MEDS ORDERED: LIDOCAINE HCL 1% LOCAL INJ 20 ML VIAL ONE (16:26)
[2018-08-15] MEDS ORDERED: SODIUM CHLORIDE 0.9% 250ML 250 ML ONE ×2 (16:33→20:53)
[2018-08-15] MEDS ORDERED: FENTANYL CITRATE/PF 100MCG/2 ML INJ ONE (16:35)
[2018-08-15] MEDS ORDERED: MIDAZOLAM HCL 2 MG/2 ML VIAL ONE (16:35)
[2018-08-15] MEDS ORDERED: HEPARIN SOD (PORCINE) 1000 UNIT/ML SDV ONE (16:38)
[2018-08-15] MEDS: SIMVASTATIN 20 MG TAB PO SCH (23:52)
[2018-08-15] MEDS: TAMSULOSIN HCL 0.4 MG CAP PO SCH (23:52)
[2018-08-15] MEDS: ATORVASTATIN 10 MG TAB PO SCH (23:52)
[2018-08-15] MEDS: CEFTRIAXONE SOD 1 GM VIAL IV SCH (23:53)
[2018-08-16 01:22] VITALS: BP 130/84
[2018-08-16] MEDS: FAMOTIDINE 20 MG TAB PO SCH ×2 (02:38→14:12)
[2018-08-16 05:15] LABS: ALBUMIN 2.3 g/dL (3.5-5.0); ALBUMIN/GLOBULIN RATIO 0.5 (0.8-2.0); ANION GAP 14.9 mmol/L (8-16); CALCIUM 9.1 mg/dL (8.4-10.2); CREATININE, SERUM 3.95 mg/dL (0.72-1.25)
[2018-08-16 05:35] LABS: POTASSIUM 2.9 mmol/L (3.5-5.1)
[2018-08-16 06:53] VITALS: BP 169/81
[2018-08-16] MEDS: INSULIN REGULAR, HUMAN 100 UNIT/1 ML 3ML VIAL SQ SCH ×2 (07:30→11:56)
[2018-08-16 08:00] VITALS: BP 130/70
[2018-08-16 09:00] VITALS: BP 130/70
[2018-08-16] MEDS: CLOPIDOGREL BISULFATE 75 MG TAB PO SCH (09:00)
[2018-08-16] MEDS: HYDROCHLOROTHIAZIDE 25 MG TAB PO SCH (09:00)
[2018-08-16] MEDS: METOPROLOL SUCCINATE 25 MG TAB XL PO SCH (09:00)
[2018-08-16] MEDS: ASPIRIN 81 MG ENTERIC COATED PO SCH (09:00)
[2018-08-16] MEDS: LISINOPRIL 20 MG TAB PO SCH (09:00)
[2018-08-16 09:10] LABS: BASOPHILS % 0.3 % (0.0-1.0); EOSINOPHILS # (AUTO) 0.1 (0.0-0.4); EOSINOPHILS % 0.5 % (0.0-6.0); HEMATOCRIT 29.9 % (38.2-49.6); HEMOGLOBIN 9.9 g/dL (14.0-18.0); LYMPHOCYTES # (AUTO) 1.2 (1.0-3.2); LYMPHOCYTES % 12.7 % (18.0-39.1); MEAN CORPUSCULAR HEMOGLOBIN 30.9 pg (28-32); MEAN CORPUSCULAR HGB CONC 33.1 g/dL (31-35); MEAN CORPUSCULAR VOLUME 93.4 fL (81-99); MONOCYTES # (AUTO) 0.6 (0.2-0.8); MONOCYTES % 6.4 % (4.4-11.3); NEUTROPHILS # (AUTO) 7.5 (2.1-6.9); NEUTROPHILS % 79.3 % (38.7-80.0); PLATELET COUNT 295 x10e3/uL (140-360); RED CELL DISTRIBUTION WIDTH 15.5 % (11.7-14.4)
[2018-08-16] MEDS ORDERED: SODIUM CHLORIDE 0.9% 250ML 500 ML IV PRN (09:15)
[2018-08-16] MEDS ORDERED: ALBUMIN 25% 12.5GM 0.25 GM/ML BTL IV PRN (09:15)
[2018-08-16] MEDS: HYDROCODONE/APAP 7.5MG-325MG 1 EA TAB PO PRN (11:57)
[2018-08-16 12:00] VITALS: BP 159/91
--- NOTE | 2018-08-16 13:26 | Diagnostic Imaging Report ---
Procedure: Tunneled hemodialysis catheter replacement. Medications: Versed 1 mg intravenous, Fentanyl 50 mcg intravenous. The patient's vital signs, including pulse oximetry, were continuously monitored by the interventional radiology nurse. Fluoroscopy time: 13 seconds Dose area product: 27.24 cGycm2 Contrast used: None Estimated blood loss: Minimal. Complications: No immediate. Procedure in detail: Informed consent for the procedure was obtained from the patient after discussion of risks and benefits. The right neck and upper chest was prepped and draped in the standard sterile fashion after the patient was placed in the supine position on the fluoroscopic table. 1% lidocaine was administered into the skin and tract of the existing tunneled HD catheter. Blunt dissection was then performed to free up the Dacron cuff. Then two 0.035 " Amplatz wire were advanced through each port of the old catheter. A new 16 Moldovan 23 cm (tip to cuff) Bard split tip catheter was then placed over the wires. The retention cuff of the catheter was advanced well into the subcutaneous tunnel. Both the arterial and venous limb are localized to the right atrium. Each lumen showed good bidirectional flow. Each lumen was then packed with 1,000 units of heparin. The catheter was secured at the exit site on the right upper chest with monofilament nylon suture. A pursestring suture was placed around the catheter at the entrance site. The patient tolerated the procedure well without immediate complication. Impression: Successful exchange of a tunneled dual-lumen hemodialysis catheter (16-Moldovan, 23-cm tip-cuff length) by a right internal jugular approach. Signed by: Dr. Prince Hussein DO on 08/16/2018 1:23 PM
--- NOTE | 2018-08-16 13:26 | Diagnostic Imaging Report ---
Procedure: Tunneled hemodialysis catheter replacement. Medications: Versed 1 mg intravenous, Fentanyl 50 mcg intravenous. The patient's vital signs, including pulse oximetry, were continuously monitored by the interventional radiology nurse. Fluoroscopy time: 13 seconds Dose area product: 27.24 cGycm2 Contrast used: None Estimated blood loss: Minimal. Complications: No immediate. Procedure in detail: Informed consent for the procedure was obtained from the patient after discussion of risks and benefits. The right neck and upper chest was prepped and draped in the standard sterile fashion after the patient was placed in the supine position on the fluoroscopic table. 1% lidocaine was administered into the skin and tract of the existing tunneled HD catheter. Blunt dissection was then performed to free up the Dacron cuff. Then two 0.035 " Amplatz wire were advanced through each port of the old catheter. A new 16 [place] 23 cm (tip to cuff) Bard split tip catheter was then placed over the wires. The retention cuff of the catheter was advanced well into the subcutaneous tunnel. Both the arterial and venous limb are localized to the right atrium. Each lumen showed good bidirectional flow. Each lumen was then packed with 1,000 units of heparin. The catheter was secured at the exit site on the right upper chest with monofilament nylon suture. A pursestring suture was placed around the catheter at the entrance site. The patient tolerated the procedure well without immediate complication. Impression: Successful exchange of a tunneled dual-lumen hemodialysis catheter (16-[place]an, 23-cm tip-cuff length) by a right internal jugular approach. Signed by: Dr. Prince Hussein DO on 08/16/2018 1:23 PM
== END 2018-08-16 15:45 | disposition home or self-care (01) | DRG 871 ==
LOC: ER 12:00 → ERHOLD 14:21 → MED/SURG2 15:08 → OBSVTOIN 08-15 16:28
PROVIDERS: ADMIT Internal Medicine; ATTEND Internal Medicine
PROC: 0JH63XZ Insertion of Tunneled Vascular Access Device into Chest Subcutaneous Tissue and Fascia, Percutaneous Approach (ICD-10-PCS; principal; 2018-08-15)
PROC: 02HV33Z Insertion of Infusion Device into Superior Vena Cava, Percutaneous Approach (ICD-10-PCS; 2018-08-15)
PROC: 30243N1 Transfusion of Nonautologous Red Blood Cells into Central Vein, Percutaneous Approach (ICD-10-PCS; 2018-08-15)
PROC: 5A1D70Z Performance of Urinary Filtration, Intermittent, Less than 6 Hours Per Day (ICD-10-PCS; 2018-08-15)
PROC: 5A1D70Z Performance of Urinary Filtration, Intermittent, Less than 6 Hours Per Day (ICD-10-PCS; 2018-08-16)
DX: A41.9 Sepsis, unspecified organism (principal); N18.6 End stage renal disease; I63.02 Cerebral infarction due to thrombosis of basilar artery; N39.0 Urinary tract infection, site not specified; I12.0 Hypertensive chronic kidney disease with stage 5 chronic kidney disease or end stage renal disease; I69.351 Hemiplegia and hemiparesis following cerebral infarction affecting right dominant side; R55 Syncope and collapse; Z99.2 Dependence on renal dialysis; D63.1 Anemia in chronic kidney disease; E11.22 Type 2 diabetes mellitus with diabetic chronic kidney disease; E78.5 Hyperlipidemia, unspecified; I25.10 Atherosclerotic heart disease of native coronary artery without angina pectoris; Z95.1 Presence of aortocoronary bypass graft; G40.909 Epilepsy, unspecified, not intractable, without status epilepticus; G93.89 Other specified disorders of brain
CPT/HCPCS: 36415; 36558; 70450; 70544; 70547; 70551; 71045; 74470; 77001; 80048; 80053; 80061; 81001; 82550; 82553; 82948; 83036; 83735; 84132; 84443; 84484; 85025; 85610; 85730; 86706; 86850; 86900; 86920; 87040; 87086; 87186; 87340; 90962; 93005; 93306; 93880; 95812; 95816; 97139; 99152; 99153; 99285; C1769; G0378; J0696; J1644; J2001; J2250; J2405; J3480; J7030; J7040; J7050; P9016